=== PATIENT | female | born 1990 | race Caucasian/White ===

== ENCOUNTER 2022-03-10 17:43 | Inpatient (IN) | payer BC ==
[2022-03-10] MEDS ORDERED: Nalbuphine HCl 10 MG/ 1ML Amp IVPUSH PRN (19:23)
[2022-03-10] MEDS ORDERED: Ondansetron 4 MG/2 ML SDV IVPUSH PRN (19:23)
[2022-03-10] MEDS ORDERED: Acetaminophen 325 MG Tab PO PRN ×2 (19:23→22:37)
[2022-03-10] MEDS ORDERED: Calcium Carbonate 500 MG Tab.Chew PO PRN (19:23)
[2022-03-10] MEDS ORDERED: Lidocaine 1% 50 ML MDV INJECT PRN (19:23)
[2022-03-10] MEDS ORDERED: Oxytocin/Lactated Ringers 10 UNIT/1,000 ML BAG IV SCH (19:30)
[2022-03-10] MEDS ORDERED: Lactated Ringers 1,000 ML IV SCH (19:30)
[2022-03-10] MEDS: Oxytocin/Lactated Ringers 10 UNIT/1,000 ML BAG IV SCH ×2 (21:44→22:58)
[2022-03-10] MEDS ORDERED: Methylergonovine 0.2 MG/1 ML Amp ONE (21:54)
[2022-03-10] MEDS ORDERED: Benzocaine/Menthol 20%-0.5% Spray 78 GM Cannister TOP PRN (22:37)
[2022-03-10] MEDS ORDERED: Witch Hazel Medicated Pads 40/Jar TOP PRN (22:37)
[2022-03-10] MEDS ORDERED: Methylergonovine 0.2 MG/1 ML Amp IM ONE (22:44)
[2022-03-10] MEDS: Ibuprofen 600 MG Tab PO PRN (22:50)
[2022-03-11] MEDS: Ibuprofen 600 MG Tab PO PRN ×2 (08:25→21:15)
== END 2022-03-11 22:46 | disposition home or self-care (01) | DRG 560 ==
LOC: JD.OBCHECK 17:43 → JD.OB 19:23 → JD.OBCHECK 22:00
PROVIDERS: ADMIT Obstetrics & Gynecology; ATTEND Obstetrics & Gynecology
PROC: 10E0XZZ Delivery of Products of Conception, External Approach (ICD-10-PCS; principal; 2022-03-10)
PROC: 10907ZC Drainage of Amniotic Fluid, Therapeutic from Products of Conception, Via Natural or Artificial Opening (ICD-10-PCS; 2022-03-10)
DX: O80 Encounter for full-term uncomplicated delivery (principal); Z37.0 Single live birth; Z3A.40 40 weeks gestation of pregnancy
CPT/HCPCS: 36415; 59025; 59409; 85027; 86592; 86850; 86900; 86901; A9270-GY; J2210; J2590

== ENCOUNTER 2024-02-08 21:21 | Emergency (ER) | payer OTHER | END 2024-02-08 22:27 | disposition home or self-care (01) | LOC: JD.ED 21:21 | DX: S20.219A Contusion of unspecified front wall of thorax, initial encounter (principal); Z90.49 Acquired absence of other specified parts of digestive tract; V49.49XA Driver injured in collision with other motor vehicles in traffic accident, initial encounter; Y92.410 Unspecified street and highway as the place of occurrence of the external cause | CPT/HCPCS: 71046; 71046-26; 99282; 99284 ==